=== PATIENT | male | born 2000 | race Caucasian/White ===

== ENCOUNTER 2024-01-30 07:28 | Emergency (ER) | payer OTHER ==
[2024-01-30] MEDS: Ketorolac 30 MG/ML SDV IM ONE (08:14)
[2024-01-30] MEDS: Bacitracin Oint 1 GM U/D Packet TOP ONE (10:18)
== END 2024-01-30 10:26 | disposition home or self-care (01) ==
LOC: JP.ED 07:28
DX: S67.21XA Crushing injury of right hand, initial encounter (principal); W23.0XXA Caught, crushed, jammed, or pinched between moving objects, initial encounter; Y93.89 Activity, other specified; Y99.0 Civilian activity done for income or pay
CPT/HCPCS: 73110; 73130; 96372; 99283; J1885